=== PATIENT | female | born 2005 | race Caucasian/White ===

== ENCOUNTER 2023-01-18 17:15 | Emergency (ER) | payer OTHER, SELFPAY ==
[2023-01-18 17:24] VITALS: BP 97/48; PULSE 113; RESP 16; TEMP 37; O2SAT 100
--- NOTE | 2023-01-18 17:24 | ED.URI ---
HPI - URI/Sore Throat General Chief Complaint: Upper Respiratory Infection Stated Complaint: Headache,Sore Throat,Upset Stomach Time Seen by Provider: 01/18/23 17:33 Source: patient and RN notes reviewed Mode of arrival: ambulatory Limitations: no limitations History of Present Illness HPI Narrative: 17-year-old female presents with concern for headache, sore throat, abdominal pain, 1 episode of vomiting, fever. Reports fever started this morning. She denies taking any medications for her symptoms. She denies diarrhea. MD elicited complaint: fever Related Data Home Medications Medication Instructions Recorded Confirmed etonogestrel 68 mg subdermal See Rx Instructions .Route .COMPLEX 01/18/23 01/18/23 implant (Nexplanon) Allergies Allergy/AdvReac Type Severity Reaction Status Date / Time dextromethorphan AdvReac Mild Hives Verified 01/18/23 17:17 guaifenesin AdvReac Mild Hives Verified 01/18/23 17:17 pseudoephedrine AdvReac Mild Hives Verified 01/18/23 17:17 Review of Systems Review of Systems: CONSTITUTIONAL: Reports fever. EYES: Denies visual changes, redness, or discharge. ENT: Reports rhinorrhea, congestion, sore throat. CARDIOVASCULAR: Denies chest pain, palpitations, or edema. RESPIRATORY: Denies cough. Denies dyspnea. GASTROINTESTINAL: Reports abdominal pain, nausea, vomiting. Denies diarrhea SKIN: Denies rash or itching. MUSCULOSKELETAL: Reports myalgia. NEUROLOGIC: Reports headache. All systems reviewed & are unremarkable except as noted in HPI and below PMFSH Comments At time of signature, agree with nursing past medical, surgical, social and family history. There is no relevant family history pertinent to the presenting complaint Exam Narrative: GENERAL: Well-appearing, well-nourished, and in no acute distress. HEAD: Normocephalic EYES: PERRLA, conjunctivae clear ENT: Nares clear, clear discharge. Mucous membranes moist. TM pearly gonzalez with sharp light reflex bilaterally; no tragal tenderness. Oropharynx not erythematous without lesions. Tonsils not enlarged and without exudate, no drooling, no hoarseness, no trismus, uvula midline. NECK: Supple. No lymphadenopathy CHEST: Clear to auscultation, breath sounds equal. No wheezing, rhonchi, rales, or stridor. No respiratory distress, speaks in full sentences. HEART: Regular rate and rhythm. No murmur heard. ABD: Bowel sounds normal, generalized abdominal tenderness SKIN: Warm, dry, no rash. NEURO: Alert and oriented x3. PSYCH: Normal mood and affect Course Course Emergency Course: Patient is aware of, understands and agrees to be transferred to the emergency room. Patient agrees to receive directly to the emergency department. Portions of this record may have been created with voice recognition software Level of Care: Express Care Visit Vital Signs Vital signs: Reviewed. Transfer Transfered to: Other ([facility]) Transfer rationale: Abdominal pain, fever, tachycardia Accepting physician: Madisyn MDM - URI/Sore Throat MDM Narrative Medical decision making narrative: Exam findings warrant further evaluation emergency room; patient is non-toxic appearing and is in no distress. Lab Data Attestation: I reviewed the patient's lab results. Critical Care Time Critical Care Time Critical Care Time: No Discharge Plan Discharge Clinical Impression: Abdominal pain Patient Disposition: Acute Care Hospital Condition: Stable Prescriptions: No Action Nexplanon 68 mg Implant See Rx Instructions .ROUTE .COMPLEX Rx Instructions: 68 mg subdermally Follow-up/Referrals: Shayne Canela MD [Primary Care Provider] - Time of Disposition: 17:54
[2023-01-18 17:38] VITALS: BP 114/52; PULSE 110
== END 2023-01-18 17:53 | disposition short-term general hospital (02) ==
PROVIDERS: Emergency Provider Nurse Practitioner; PCP Pediatrics
DX: R10.84 Generalized abdominal pain (principal); Z20.822 Contact with and (suspected) exposure to COVID-19
CPT/HCPCS: 87081; 87426; 87804; 87880; 99213; C9803; G0463